=== PATIENT | male | born 1980 | race Caucasian/White ===

== ENCOUNTER 2016-12-03 11:00 | Emergency (ER) | payer SELFPAY ==
[~2016-12-03] VITALS: Ht 182.9 cm; Wt 80.5 kg
[2016-12-03 12:57] LABS: EOSINOPHIL (%) 0.2 % (0-5); HEMATOCRIT 43.3 % (38.0-50.0); IMMATURE GRANULOCYTE (%) 0.4 % (0.0-0.7); IMMATURE GRANULOCYTE COUNT 0.7 K/uL; LYMPHOCYTE COUNT 1.1 K/uL (1.0-2.8); MCH 30.1 PG (29.0-34.0); MCHC 34.6 G/DL (30.0-36.0); MCV 86.8 FL (86-99); MEAN PLAT.VOLUME 9.4 uM^3 (9.0-12.4); MONOCYTE (%) 5.6 % (3-12); NEUTROPHIL (%) 87.5 % (45-76); PLATELET COUNT 246 K/uL (156-360); RBC DIS.WIDTH-CV 12.1 % (11.8-14.6); RBC DIS.WIDTH-SD 38.2 % (39-53); RED BLOOD COUNT 4.99 M/uL (4.00-5.50); WHITE BLOOD COUNT 18.3 K/uL (4.1-10.2)
[2016-12-03 12:59] LABS: CHLORIDE 104 mEq/L (99-109); POTASSIUM 4.3 mEq/L (3.7-5.4); SODIUM 137 mEq/L (136-147)
[2016-12-03 13:01] LABS: GLUCOSE 99 mg/dL (70-99)
[2016-12-03 13:02] LABS: ANION GAP 11 MEQ/L (2-14)
[2016-12-03 13:05] LABS: GFR ESTIMATE (CALCULATED) > 59 mL/min/
[2016-12-03 13:26] LABS: UREA NITROGEN (BUN) 13 mg/dL (9-23)
[2016-12-03] MEDS ORDERED: KEPPRA500 MG PO (13:41)
[2016-12-03 15:17] VITALS: BP 119/72
== END 2016-12-03 14:50 | disposition home or self-care (01) ==
LOC: EME → EDBD 11:00 → EME 14:50
PROVIDERS: Emergency Medicine
DX: G40.909 Epilepsy, unspecified, not intractable, without status epilepticus (principal)
CPT/HCPCS: 80048; 85025; 99281; 99285; J1630; J1953; J2250; J7050